=== PATIENT | male | born 1995 | race American Indian/Alaskan Native ===

== ENCOUNTER 2017-06-01 16:22 | Emergency (ER) | payer MEDICAID ==
[2017-06-01 16:30] VITALS: BMI 27.4
[2017-06-01 16:44] VITALS: TEMP 98.4
--- NOTE | 2017-06-01 16:48 | ED PDOC ---
Arrival/HPI - General Chief Complaint: Cough, Cold, Congestion Time Seen by Provider: 06/01/17 16:25 Historian: Patient - History of Present Illness Narrative History of Present Illness (Text): 06/01/17 16:37 21 year old male presents to the Emergency department complaining of cough for 3 weeks. Patient also complains of associated post tussive emeisis x1 this morning, rhinnorhea, sore throat, body aches, and decreased appetite. Patient also reports experiencing a fever during the first week of his illness. Patient denies any chest pain, shortness of breath, abdominal pain, diarrhea, urinary symptoms, back pain, neck pain, headache, dizziness, or any other complaints. Patient did not get a flu shot this year. Patient states he does not want lab work done at this time. 06/01/17 20:47 Time/Duration: < month Symptom Onset: Gradual Symptom Course: Unchanged Context: Home Past Medical History - Provider Review Nursing Documentation Reviewed: Yes - Past History Past History: No Previous - Infectious Disease Hx of Infectious Diseases: None - Tetanus Immunization Tetanus Immunization: Up to Date - Musculoskeletal/Rheumatological Other/Comment: Broken jaw. Ferny ankle problem - Psychiatric Hx Depression: No Hx Emotional Abuse: No Hx Physical Abuse: No Hx Substance Use: No - Past Surgical History Past Surgical History: No Previous - Surgical History Other/Comment: jaw surgery - Anesthesia Hx Anesthesia: Yes Hx Anesthesia Reactions: No Hx Malignant Hyperthermia: No - Suicidal Assessment Feels Threatened In Home Enviroment: No Family/Social History - Physician Review Nursing Documentation Reviewed: Yes Family/Social History: Unknown Family HX Smoking Status: Never Smoked Hx Alcohol Use: No Hx Substance Use: No Hx Substance Use Treatment: No Allergies/Home Meds Allergies/Adverse Reactions: Allergies No Known Allergies Allergy (Verified 06/16/14 01:23) Review of Systems - Physician Review All systems were reviewed & negative as marked: Yes - Review of Systems Constitutional: Fevers, Other (decreased appetite) ENT: Sore Throat, Rhinorrhea Respiratory: Cough. absent: SOB Cardiovascular: absent: Chest Pain Gastrointestinal: Vomiting. absent: Abdominal Pain Genitourinary Male: absent: Dysuria Musculoskeletal: absent: Back Pain, Neck Pain Neurological: absent: Headache, Dizziness Physical Exam Vital Signs Reviewed: Yes Vital Signs Temp Pulse Resp BP Pulse Ox 06/01/17 17:30 72 17 135/78 98 06/01/17 16:32 98.4 F 73 18 139/80 97 Temperature: Afebrile Blood Pressure: Normal Pulse: Regular Respiratory Rate: Normal Appearance: Positive for: Well-Appearing, Non-Toxic, Comfortable Pain Distress: None Mental Status: Positive for: Alert and Oriented X 3 - Systems Exam Head: Present: Atraumatic, Normocephalic Pupils: Present: PERRL Extroacular Muscles: Present: EOMI Conjunctiva: Present: Normal Mouth: Present: Moist Mucous Membranes Pharnyx: Present: ERYTHEMA. No: EXUDATE Neck: Present: Normal Range of Motion Respiratory/Chest: Present: Clear to Auscultation, Good Air Exchange. No: Respiratory Distress, Accessory Muscle Use Cardiovascular: Present: Regular Rate and Rhythm, Normal S1, S2. No: Murmurs Abdomen: Present: Normal Bowel Sounds. No: Tenderness, Distention, Peritoneal Signs Back: Present: Normal Inspection Upper Extremity: Present: Normal Inspection. No: Cyanosis, Edema Lower Extremity: Present: Normal Inspection. No: Edema Neurological: Present: GCS=15, CN II-XII Intact, Speech Normal Skin: Present: Warm, Dry, Normal Color. No: Rashes Psychiatric: Present: Alert, Oriented x 3, Normal Insight, Normal Concentration Medical Decision Making ED Course and Treatment: 06/01/17 16:43 Impression: 21 year old male presents to the Emergency department complaining of cough, rhinnorhea, sore throat, body aches, and vomiting. Differential Diagnosis included but are not limited to: influenza vs. strep throat Plan: -- Chest xray -- Rapid influenza test, rapid strep test -- Tylenol -- Reassess and disposition Progress Notes: 06/01/17 20:47 pt continues to decline lab testing, he is offered assessment. he is well appearing, cxr neg, 3 weeks of symptoms will not dose tamiflu. cxr neg. speaking full sentneces in nad. advise outpt fu and return precautions - Lab Interpretations Lab Results: Lab Results 06/01/17 16:43: Influenza Typ A,B (EIA) Negative for flu a/b, Grp A Beta Strep Ag Negative - RAD Interpretation Narrative RAD Interpretations (Text): 06/01/2017 17:09:33 TECHNIQUE: Chest PA and lateral FINDINGS: LINES AND TUBES: None. LUNG AND PLEURA: The lungs are well inflated and clear. HEART AND MEDIASTINUM: The heart is not enlarged. The hilar and mediastinal contours are within normal limits. SKELETAL STRUCTURES: The bony structures are within normal limits for the patient's age. VISUALIZED UPPER ABDOMEN: Normal. OTHER FINDINGS: None. IMPRESSION: No active pulmonary disease. Radiology Orders: 06/01/17 16:38 CXR [CHEST TWO VIEWS (PA/LAT)] [RAD] Stat - Medication Orders Current Medication Orders: Discontinued Medications Acetaminophen (Tylenol 325mg Tab) 975 mg PO STAT STA Stop: 06/01/17 16:40 Last Admin: 06/01/17 16:46 Dose: - Scribe Statement The provider has reviewed the documentation as recorded by the Booibanika Jeffery Provider Scribe Attestation: All medical record entries made by the Scribe were at my direction and personally dictated by me. I have reviewed the chart and agree that the record accurately reflects my personal performance of the history, physical exam, medical decision making, and the department course for this patient. I have also personally directed, reviewed, and agree with the discharge instructions and disposition. Disposition/Present on Arrival - Present on Arrival Any Indicators Present on Arrival: No History of DVT/PE: No History of Uncontrolled Diabetes: No Urinary Catheter: No History of Decub. Ulcer: No History Surgical Site Infection Following: None - Disposition Have Diagnosis and Disposition been Completed?: Yes Diagnosis: Viral syndrome Disposition: HOME/ ROUTINE Disposition Time: 05:30 Condition: STABLE Discharge Instructions (ExitCare): Viral Syndrome (DC) Additional Instructions: please follow up with your doctor. return to er with worsening symptoms or concerns Prescriptions: Ibuprofen [Motrin Tab] 400 mg PO Q6 PRN #20 tab PRN Reason: Pain, Mild (1-3) Referrals: [facility] [Outside] - Follow up with primary [facility] [place]Outside] - Follow up with primary Forms: [employer] (Arabic)
[2017-06-01 17:22] LABS: INFLUENZA A B NEGATIVE FOR FLU A/B (NEGATIVE)
[2017-06-01 17:34] VITALS: BP 135/78; PULSE 72; RESP 17; O2SAT 98
== END 2017-06-01 17:32 | disposition home or self-care (01) ==
LOC: ED 16:22
DX: B34.9 Viral infection, unspecified (principal)